=== PATIENT | male | born 1965 | race Caucasian/White ===

== ENCOUNTER 2017-12-27 19:52 | Emergency (ER) | payer OTHER ==
[~2017-12-27] VITALS: Ht 180.3 cm; Wt 91.6 kg
[~2017-12-27 19:52] MED LIST: NAPROSYN500 MG PO; NOHOMEMEDS
[2017-12-27] MEDS ORDERED: ULTRAM50 MG PO (21:08)
[2017-12-27] MEDS ORDERED: FLEXERIL10 MG PO (21:09)
[2017-12-27 21:32] VITALS: BP 137/89
== END 2017-12-27 21:32 | disposition home or self-care (01) ==
LOC: EME 19:52
DX: S73.102A Unspecified sprain of left hip, initial encounter (principal); S70.02XA Contusion of left hip, initial encounter; W10.9XXA Fall (on) (from) unspecified stairs and steps, initial encounter
CPT/HCPCS: 73502; 99281; 99284